=== PATIENT | male | born 1970 | race Caucasian/White ===

== ENCOUNTER 2016-10-04 10:59 | Observation (INO) | payer BC ==
[~2016-10-04] VITALS: Ht 172.7 cm; Wt 97.0 kg
[2016-10-04 11:45] LABS: BASO % 0.2 % (0.2-1.2); EOS # 0.1 10_X3_uL (0.0-0.5); EOS % 1.4 % (0.8-7.0); GRAN # 6.7 10_X3_uL (1.8-5.4); GRAN % 70.4 % (34.0-67.9); HEMATOCRIT 42.9 % (40-51); HEMOGLOBIN 14.8 g/dL (13.7-17.5); LYMPH # 1.5 10_X3_uL (1.3-3.6); LYMPH % 15.6 % (21.8-53.1); MEAN CORPUSCULAR HEMOGLOBIN 31.5 pg (27.0-33.0); MEAN CORPUSCULAR HGB CONC 34.5 g/dL (32.0-36.0); MEAN CORPUSCULAR VOLUME 91.3 fL (79-92); MEAN PLATELET VOLUME 10.2 fl (7.5-11.5); MONO # 1.2 10_X3_uL (0.3-0.8); MONO % 12.4 % (5.3-12.2); PLATELET COUNT 268 x10_3/uL (163-337); RED CELL DISTRIBUTION WIDTH 12.3 % (11.6-14.4); WHITE BLOOD COUNT 9.5 x10_3/uL (4.2-9.1)
[2016-10-04 11:57] LABS: BLOOD UREA NITROGEN 15 mg/dL (7-18); CALCIUM 9.6 mg/dL (8.7-10.7); CARBON DIOXIDE 22 mmol/L (21-32); CREATININE 1.1 mg/dL (0.6-1.3); GLUCOSE,RANDOM 100 mg/dL (70-99); POTASSIUM 3.7 mmol/L (3.5-5.1); SODIUM 139 mmol/L (136-145)
[2016-10-05 07:22] LABS: MEAN CORPUSCULAR HEMOGLOBIN 31.3 pg (27.0-33.0); MEAN CORPUSCULAR HGB CONC 33.3 g/dL (32.0-36.0); MEAN CORPUSCULAR VOLUME 93.8 fL (79-92); MEAN PLATELET VOLUME 10.1 fl (7.5-11.5); RED BLOOD COUNT 4.16 x10_6/uL (4.6-6.1); RED CELL DISTRIBUTION WIDTH 12.1 % (11.6-14.4); WHITE BLOOD COUNT 6.8 x10_3/uL (4.2-9.1)
[2016-10-05 07:46] LABS: BLOOD UREA NITROGEN 12 mg/dL (7-18); CALCIUM 8.2 mg/dL (8.7-10.7); CARBON DIOXIDE 25 mmol/L (21-32); CREATININE 1.1 mg/dL (0.6-1.3); GLUCOSE,RANDOM 90 mg/dL (70-99); POTASSIUM 3.9 mmol/L (3.5-5.1); SODIUM 138 mmol/L (136-145)
[2016-10-06 07:25] LABS: HEMATOCRIT 38.5 % (40-51); HEMOGLOBIN 13.2 g/dL (13.7-17.5); MEAN CORPUSCULAR HEMOGLOBIN 31.5 pg (27.0-33.0); MEAN CORPUSCULAR HGB CONC 34.3 g/dL (32.0-36.0); MEAN CORPUSCULAR VOLUME 91.9 fL (79-92); MEAN PLATELET VOLUME 10.2 fl (7.5-11.5); RED BLOOD COUNT 4.19 x10_6/uL (4.6-6.1); RED CELL DISTRIBUTION WIDTH 11.8 % (11.6-14.4); WHITE BLOOD COUNT 7.9 x10_3/uL (4.2-9.1)
[2016-10-06 07:37] LABS: BLOOD UREA NITROGEN 12 mg/dL (7-18); CALCIUM 8.5 mg/dL (8.7-10.7); CARBON DIOXIDE 25 mmol/L (21-32); GLUCOSE,RANDOM 95 mg/dL (70-99); POTASSIUM 4.1 mmol/L (3.5-5.1); SODIUM 141 mmol/L (136-145)
== END 2016-10-06 10:40 | disposition home or self-care (01) ==
LOC: ER 10:59 → MS 12:14
PROVIDERS: General Practice; ADMIT Family Medicine
PROC: 0H9AXZZ Drainage of Inguinal Skin, External Approach (ICD-10-PCS; principal; 2016-10-04)
DX: N49.2 Inflammatory disorders of scrotum (principal); B96.89 Other specified bacterial agents as the cause of diseases classified elsewhere; L73.9 Follicular disorder, unspecified; I10 Essential (primary) hypertension; Z79.899 Other long term (current) drug therapy
CPT/HCPCS: 36415; 54700; 80048; 80202; 85025; 87040; 87070; 87186; 96361; 96365; 96366; 96367; 96372; 96375; 96376; 99070; 99284-25; G0378; J1170; J3370; J7050